=== PATIENT | male | born 1990 | race Caucasian/White ===

== ENCOUNTER 2018-11-14 13:25 | Emergency (ER) | payer MEDICAID ==
[~2018-11-14] VITALS: Wt 145.4 kg
[~2018-11-14 13:25] MED LIST: MUPI22OI2 TOP; NITR-58 PO
[2018-11-14 13:30] VITALS: BP 139/89; PULSE 78; RESP 20
== END 2018-11-14 15:42 | disposition home or self-care (01) ==
LOC: FTE 13:25
DX: R30.0 Dysuria (principal)
CPT/HCPCS: 81001; Z7502; 99283